=== PATIENT | male | born 1945 | race Caucasian/White ===

== ENCOUNTER 2018-08-18 07:17 | Emergency (ER) | payer OTHER ==
[2018-08-18] MEDS ORDERED: ONDANSETRON 4 MG/2 ML VIAL IVP STA (07:20)
[2018-08-18] MEDS ORDERED: SODIUM CHLORIDE 0.9% 1,000 ML IV STA (07:21)
[2018-08-18] MEDS ORDERED: ROCURONIUM BROMIDE 10 MG/ML 10 ML VIAL IV STA (07:25)
[2018-08-18 07:35] LABS: Basophils # (A) 0.1 k/uL (0-0.2); Basophils % (A) 0 %; Eosinophils # (A) 0.1 k/uL (0-0.7); Eosinophils % (A) 0 %; HCT 54.4 % (39.0-53.0); HGB 17.3 gm/dL (13.0-17.5); Lymphocytes # (A) 2.1 k/uL (1.0-4.8); Lymphocytes % (A) 12 %; MCH 29.8 pg (25.0-35.0); MCHC 31.8 g/dL (31.0-37.0); MCV 93.6 fL (80.0-100.0); Mean Platelet Volume 7.3; Monocytes # (A) 0.6 k/uL (0-1.0); Monocytes % (A) 3 %; Neutrophils # (A) 15.3 k/uL (1.3-7.7); Neutrophils % (A) 84 %; Platelet Count 391 k/uL (150-450); RBC 5.81 m/uL (4.30-5.90); WBC 18.3 k/uL (3.8-10.6)
--- NOTE | 2018-08-18 07:36 | ED ---
General Adult HPI - General Stated complaint: poss stroke Time Seen by Provider: 08/18/18 07:17 Source: RN notes reviewed - History of Present Illness Initial comments: This is a 72-year-old male who presents to the emergency department with strokelike symptoms. Patient awoke at about 4:30 this morning was vomiting. Family states that the whole family has been sick lately. Patient then at about 5:45 started feeling a weird sensation of the right side of his body and family noted that he started having paralysis. Patient had facial droop and was unable to move the right arm at about quarter after 6 and it was difficult to assess whether could move his leg. On arrival patient was unresponsive and had a gaze to the left and was not following any commands. Patient did not have a gag reflex at this time. Patient any H was clearly going to be extremely high. Patient's GCS was about 6 without any verbal and gazing to the right without any change. Patient occasionally did move the left side of his body with painful stimuli. - Related Data Allergies Allergy/AdvReac Type Severity Reaction Status Date / Time Unable to Assess Allergy Verified 08/18/18 08:26 Review of Systems ROS Statement: Those systems with pertinent positive or pertinent negative responses have been documented in the HPI. ROS Other: All systems not noted in ROS Statement are negative. General Exam - General Exam Comments Initial Comments: GENERAL: Patient is well-developed and well-nourished. Patient is unresponsive EYES: The sclera were anicteric and conjunctiva were pink and moist. Extraocular movements were intact and pupils were equal round and reactive to light. Eyelids were unremarkable. PULMONARY: Unlabored respirations. Good breath sounds bilaterally. No audible rales rhonchi or wheezing was noted. CARDIOVASCULAR: There is a regular rate and rhythm without any murmurs gallops or rubs. ABDOMEN: Soft and nontender with normal bowel sounds. SKIN: Skin is clear with no lesions or rashes and otherwise unremarkable. NEUROLOGIC: Patient is not alert patient is gazing to the left I cannot get the patient to move his right arm even with painful stimuli. He did move his left leg a little but difficult to assess since she's not following any commands. Patient's GCS is 6. Patient has no gag reflex. Patient will be intubated soon MUSCULOSKELETAL: Unable to assess movement PSYCHIATRIC: Unable to assess Course Vital Signs 08/18/18 07:19 Temperature 98.3 F Pulse Rate 93 Respiratory 12 Rate Blood Pressure 189/100 O2 Sat by Pulse 84 L Oximetry Procedures - Intubation Sedative: Etomidate Paralytic: Rocuronium Laryngoscope: Bird Size: 3 ET Tube Size: 7.5 ET Tube Uncuffed: No Tube Secured Location: teeth Tube Placement Confirmation: visualized tube passing through cords, equal breath sounds bilaterally, no breath sounds over epigastrium, confirmation by capnometry Patient Tolerated Procedure: well Intubation Complications: none Medical Decision Making - Medical Decision Making I intubated the patient shortly after arrival. I spoke with Dr. Dobbs and he will look at the films back to us as to what he wo uld like us to do. Patient had a CT and CTA Dr. Dr. Dobbs is looked at those and determined that e patient be given aspirin and Plavix but no TPA at this time. Dr. Dobbs wanted the patient transferred to [facility]. A Treviño was placed. Chest x-ray showed ET tube in place but a little bit towards the right bronchus so we pulled back 2 cm. Nursing tried to place an NG and NOT and were unsuccessful I attempted and was also unsuccessful. Transfer was slightly delayed secondary to the fact that the patient needed to be intubated - Lab Data Result diagrams: 08/18/18 07:20 08/18/18 07:20 Lab Results 08/18/18 08/18/18 08/18/18 Range/Units 07:20 07:20 07:20 WBC 18.3 H (3.8-10.6) k/uL RBC 5.81 (4.30-5.90) m/uL Hgb 17.3 (13.0-17.5) gm/dL Hct 54.4 H (39.0-53.0) % MCV 93.6 (80.0-100.0) fL MCH 29.8 (25.0-35.0) pg MCHC 31.8 (31.0-37.0) g/dL RDW 13.0 (11.5-15.5) % Plt Count 391 (150-450) k/uL Neutrophils % 84 % Lymphocytes % 12 % Monocytes % 3 % Eosinophils % 0 % Basophils % 0 % Neutrophils # 15.3 H (1.3-7.7) k/uL Lymphocytes # 2.1 (1.0-4.8) k/uL Monocytes # 0.6 (0-1.0) k/uL Eosinophils # 0.1 (0-0.7) k/uL Basophils # 0.1 (0-0.2) k/uL PT (9.0-12.0) sec INR (<1.2) APTT (22.0-30.0) sec Sodium 142 (137-145) mmol/L Potassium 4.3 (3.5-5.1) mmol/L Chloride 105 (98-107) mmol/L Carbon Dioxide 25 (22-30) mmol/L Anion Gap 12 mmol/L BUN 22 H (9-20) mg/dL Creatinine 0.95 (0.66-1.25) mg/dL Est GFR (CKD-EPI)AfAm >90 (>60 ml/min/1.73 sqM) Est GFR (CKD-EPI)NonAf 80 (>60 ml/min/1.73 sqM) Glucose 149 H (74-99) mg/dL POC Glucose (mg/dL) (75-99) mg/dL POC Glu Retort Operator ID Calcium 9.3 (8.4-10.2) mg/dL Total Bilirubin 0.9 (0.2-1.3) mg/dL AST 29 (17-59) U/L ALT 24 (21-72) U/L Alkaline Phosphatase 134 H (38-126) U/L Total Creatine Kinase 21 L (55-170) U/L CK-MB (CK-2) 0.6 (0.0-2.4) ng/mL CK-MB (CK-2) Rel Index 2.9 Troponin I <0.012 (0.000-0.034) ng/mL Total Protein 8.0 (6.3-8.2) g/dL Albumin 4.4 (3.5-5.0) g/dL 08/18/18 08/18/18 Range/Units 07:20 07:45 WBC (3.8-10.6) k/uL RBC (4.30-5.90) m/uL Hgb (13.0-17.5) gm/dL Hct (39.0-53.0) % MCV (80.0-100.0) fL MCH (25.0-35.0) pg MCHC (31.0-37.0) g/dL RDW (11.5-15.5) % Plt Count (150-450) k/uL Neutrophils % % Lymphocytes % % Monocytes % % Eosinophils % % Basophils % % Neutrophils # (1.3-7.7) k/uL Lymphocytes # (1.0-4.8) k/uL Monocytes # (0-1.0) k/uL Eosinophils # (0-0.7) k/uL Basophils # (0-0.2) k/uL PT 9.9 (9.0-12.0) sec INR 0.9 (<1.2) APTT 20.7 L (22.0-30.0) sec Sodium (137-145) mmol/L Potassium (3.5-5.1) mmol/L Chloride (98-107) mmol/L Carbon Dioxide (22-30) mmol/L Anion Gap mmol/L BUN (9-20) mg/dL Creatinine (0.66-1.25) mg/dL Est GFR (CKD-EPI)AfAm (>60 ml/min/1.73 sqM) Est GFR (CKD-EPI)NonAf (>60 ml/min/1.73 sqM) Glucose (74-99) mg/dL POC Glucose (mg/dL) 138 H (75-99) mg/dL POC Glu Retort Operator PALAK Hansa Causey Calcium (8.4-10.2) mg/dL Total Bilirubin (0.2-1.3) mg/dL AST (17-59) U/L ALT (21-72) U/L Alkaline Phosphatase (38-126) U/L Total Creatine Kinase (55-170) U/L CK-MB (CK-2) (0.0-2.4) ng/mL CK-MB (CK-2) Rel Index Troponin I (0.000-0.034) ng/mL Total Protein (6.3-8.2) g/dL Albumin (3.5-5.0) g/dL Critical Care Time Critical Care Time: Yes Total Critical Care Time: 45 Disposition Clinical Impression: CVA (cerebral vascular accident) Disposition: OTHER INSTITUTION NOT DEFINED Referrals: None,Stated [Primary Care Provider] - 1-2 days Time of Disposition: 07:52 - Out of Hospital Transfer - Req. Specs Out of Hospital Transfer - Requested Specifics: Neurological ICU (Gennaro Cody)
[2018-08-18 07:44] LABS: ALT 24 U/L (21-72); AST 29 U/L (17-59); Albumin 4.4 g/dL (3.5-5.0); Alkaline Phosphatase 134 U/L (38-126); Anion Gap 12 mmol/L; Blood Urea Nitrogen 22 mg/dL (9-20); Calcium 9.3 mg/dL (8.4-10.2); Carbon Dioxide 25 mmol/L (22-30); Chloride 105 mmol/L (98-107); Glucose 149 mg/dL (74-99); Potassium 4.3 mmol/L (3.5-5.1); Sodium 142 mmol/L (137-145); Total Bilirubin 0.9 mg/dL (0.2-1.3)
[2018-08-18 07:47] LABS: Glucose,Whole Blood 138 mg/dL (75-99)
[2018-08-18 07:51] LABS: INR 0.9 (<1.2); Prothrombin Time 9.9 sec (9.0-12.0)
[2018-08-18] MEDS ORDERED: ASPIRIN 300 MG SUPP RECTAL STA (08:00)
--- NOTE | 2018-08-18 08:01 | CT ---
EXAMINATION TYPE: CT brain wo con for TPA DATE OF EXAM: 08/18/2018 COMPARISON: None HISTORY: 72-year-old male right-sided weakness, neurologic deficits TECHNIQUE: Examination was done in axial plane without intravenous contrast. Coronal and sagittal r econstructions performed. CT DLP: 1005 mGycm Automated exposure control for dose reduction was used. FINDINGS: There is no evidence of acute intracranial hemorrhage, acute ischemic changes, mass, mass-effect, or extra-axial fluid collection. There is no effacement of cerebral sulci or basal subarachnoid cister ns. There is no midline shift. Hong-white matter distinction is preserved. Persistent origin left posterior cerebral artery demonstrated There is some focal cortical hypodensity right parietal lobe, axial image 43 which could represent an area of acute to subacute ischemia. Mild ventricular prominence suggest central cerebral atrophy. Postresection changes involving the left mastoid air cells. Complete opacification maxillary sinuses and scattered mild to moderate mucosal thickening throughout the ethmoid and frontal sinuses. Slightl y divergent gaze. IMPRESSION: 1. Some cortical hypodensity right parietal lobe could represent an area of acute or subacute ischemi a. However, we note that this would cause clinical symptoms on the left side of the body. No other ac ewiiaapaayp intracranial abnormality seen. 2. Severe chronic bilateral maxillary sinusitis
[2018-08-18 08:06] LABS: Creatine Kinase 21 U/L (55-170)
[2018-08-18 08:12] LABS: Partial Thromboplastin Time 20.7 sec (22.0-30.0)
--- NOTE | 2018-08-18 08:17 | XR ---
EXAMINATION TYPE: XR chest 1V DATE OF EXAM: 08/18/2018 COMPARISON: NONE HISTORY: Altered mental status TECHNIQUE: Single frontal view of the chest is obtained. FINDINGS: Endotracheal tube terminates approximately 1.7 cm from the edouard. Pulmonary vasculature i s mildly prominent. No focal consolidation, pleural effusion or pneumothorax. Cardiomediastinal silho uette is slightly rotated given patient position. Osseous structures are grossly intact. IMPRESSION: Appropriately placed endotracheal tube. Slight pulmonary vascular engorgement/congestion without pleural effusion or focal consolidation.
[2018-08-18 08:20] LABS: Creatine Kinase MB 0.6 ng/mL (0.0-2.4); Troponin I <0.012 ng/mL (0.000-0.034)
[2018-08-18] MEDS ORDERED: ETOMIDATE 2 MG/ML 10 ML VIAL IVP STA (08:29)
--- NOTE | 2018-08-18 08:35 | CT ---
EXAMINATION TYPE: CT angio head neck DATE OF EXAM: 08/18/2018 HISTORY: Neuro deficits COMPARISON: CT brain dictation of the same date. CT DLP: 387.8 mGycm. Automated Exposure Control for Dose Reduction was Utilized. TECHNIQUE: CTA scan of the neck is performed with IV Contrast, patient injected with 65 mL of Isovue 370, axial images are obtained, coronal and sagittal reformatted images are reviewed. Three-D recons tructed images are created on an independent workstation and reviewed. FINDINGS: Carotid/Vascular Structures: The common carotids are patent with no hemodynamically significant steno sis. The carotid bulbs demonstrate mild calcific atheromatous plaquing without hemodynamically signif icant stenosis. The cervical portions of the internal carotid arteries also demonstrate minimal ather osclerosis. There is a conventional three-vessel branch pattern of the aortic arch. The right vertebral artery be comes occluded at the level of C1 within the transverse foramen. Flow within the basilar artery is di minished. The left posterior cerebral artery has a origin. The right posterior cerebral artery also appears to have a origin with stenosis of the origin from the middle cerebral artery. Bran ch vessels of the bilateral superior cerebellar arteries are not well opacified. This may be due to t he diminished flow within the basilar artery. Other: There is complete opacification of the visualized portions of the maxillary sinuses. Endotrach eal tube is noted. Moderate multilevel degenerative changes of the spine are seen. Multifocal atelect asis is seen within the right upper lung. Visualized portions of the brain are better discussed on th e CT brain dictation of the same day. There is a small focus of pneumocephalus and encephalomalacia in the left temporal lobe immediately a djacent to the postsurgical changes of the left temporal bone. Correlate for recent surgery. IMPRESSION: 1. 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 There is overall diminished flow within the basilar artery and suboptimal flow to the p osterior circulation, particularly on the right with insufficient flow of the superior cerebellar art eries (right less than left). There appears to be diminutive distal branch vessels to the right occip ital and posterior parietal lobes. 2. Punctate focus of air within the left temporal lobe is seen with postsurgical change of the left m astoid air cells. Correlate for any recent surgery. Encephalomalacia is seen involving immediately ad jacent temporal lobe.
[2018-08-18 08:38] VITALS: BP 170/91; RESP 15
[2018-08-18 08:41] VITALS: PULSE 82; TEMP 98.4
[2018-08-18] MEDS ORDERED: hydrALAZINE HCL 20 MG/ML 1 ML VIAL IVP STA (08:55)
[2018-08-18] MEDS ORDERED: LORazepam 2 MG/ML INJ IV STA (08:56)
== END 2018-08-18 08:15 | disposition other institution (70) ==
LOC: EC 07:17
DX: I63.9 Cerebral infarction, unspecified (principal); R29.735 NIHSS score 35; Z53.8 Procedure and treatment not carried out for other reasons
CPT/HCPCS: 36415; 94002; 80053; 82550; 82553; 84484; 85025; 85610; 85730; 71045; 70496; 70450; 70498; 99291; 31500; 96374; 96375; 96361; J2060; J0360; Q9967

== ENCOUNTER → 2018-11-28 | Outpatient (CLI) | payer MEDICARE ==
--- NOTE | 2018-12-01 12:46 | PE ---
Medicine PET/CT HISTORY: Esophageal carcinoma, subsequent Patient received 10.7 mCi F-18 FDG intravenously and delayed scanning performed from skull base to th e mid thighs. Localization and attenuation correction CT scan was performed. CT brain 08/18/2018 Suspect some misregistration is present on the fused images. Neck and chest: Some decreased uptake is noted along the right occipital brain compatible with infarc t. There is no evident cervical or mediastinal adenopathy. The esophagus shows thickening, there is a hiatal hernia present. Some mild uptake is present distal esophagus near the gastroesophageal juncti on, SUV is 3.1. No evident lung mass. Right-sided Port-A-Cath is present with the distal tip in the s uperior vena cava. Some possible thickening interstitial bands present at the posterior lung bases, t here may be atelectatic change, difficult to exclude some subcentimeter subpleural nodularity, axial image 100 and the left lower lobe, axial image 108, 109 and 110, right lower lobe. There is loop demetrius rder present in the left anterior chest subcutaneous tissues. ABDOMEN: No retroperitoneal adenopathy. No evident liver mass. Obstructive calcification at the lower pole the right kidney represent a 2 to 3 mm calculus. Aorta sh ows atheromatous change. Diverticular change associated with the sigmoid and descending colon. No viviana e fluid or pelvic adenopathy. Large T fecal debris present within the rectum, correlate for possible fecal impaction. There may be hydroceles present. Prostate shows associated calcification. Osseous structures unremarkable. Degenerative disc changes, facet arthropathy noted in the lower lumb ar spine. IMPRESSION: Mild uptake seen along the esophagus as described. Correlate for possible fecal impaction . Subpleural nodularity questionable clinical significance. Additional findings above.
== END | disposition home or self-care (01) ==
LOC: RADPETMAIN 16:36
PROVIDERS: ATTEND Internal Medicine
DX: C15.5 Malignant neoplasm of lower third of esophagus (principal); F17.210 Nicotine dependence, cigarettes, uncomplicated
CPT/HCPCS: 78815; A9552

== ENCOUNTER → 2018-12-24 | Outpatient (CLI) | payer MEDICARE, OTHER ==
--- NOTE | 2018-12-24 11:25 | FL ---
Modified barium swallow. HISTORY: Dysphagia. Modified barium swallow was performed with the department of speech pathology. The patient was prese nted with various consistencies of barium. Edy aspiration noted after a single spoonful of thin liquid barium. Examination was terminated at t hat point. Full report is to follow from the department of speech pathology. Impression: Edy aspiration
== END | disposition home or self-care (01) ==
LOC: RADFLMAIN 10:29
PROVIDERS: ATTEND Surgery Surgical Oncology
DX: R13.12 Dysphagia, oropharyngeal phase (principal)
CPT/HCPCS: 74230